=== PATIENT | male | born 1990 | race Caucasian/White ===

== ENCOUNTER 2019-06-05 13:12 | Emergency (ER) | payer BC, OTHER ==
[2019-06-05 13:44] VITALS: BP 133/87
--- NOTE | 2019-06-05 14:06 | UC ---
Eye Complaint HPI - HPI Summary HPI Summary: CHIEF COMPLAINT and HPI: This is a healthy 29 year old male with bilateral eye redness and crusting beginning 24 hours ago. Description of Pain: none; some itching. patient does use contact lenses that he wears for a month. He did have the contacts in. This is near the end of month course. However he's never had any trouble with the contacts and is in no discomfort. VITAL SIGNS & SaO2 REVIEWED. Within normal limits unless noted here. NURSES NOTE REVIEWED. 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 Negative: Blurred Vision, Diplopia, Photophobia Respiratory: Positive: Negative Cardiovascular: Positive: Negative Gastrointestinal: Positive: Negative Is Patient Immunocompromised?: No Physical Exam - Summary Physical Exam Summary: Appearance: The patient is well-appearing, is in no pain or distress, and is well-nourished. Eyes: Pupils are equal and reactive to light and accommodation. Extra ocular muscle movement is intact. ENT: The hearing is grossly normal, the pharynx is normal, and the TMs are normal. There is no muffled or hoarse voice. No stridor. There is mild injection to both sclera. There is evidence of dried crusting to the lower lashes of both eyes. There is slight injection to the bulbar conjunctiva bilaterally. Examination shows no hyphema, no corneal ulceration and no randolph- limbic flushing. Funduscopic examination is benign. Neck: The neck is supple and there is no lymphadenopathy. Respiratory: The chest is non-tender to palpation and without crepitus. The lungs are clear, there are normal breath sounds, and there is no respiratory distress. No wheezes, rales or rhonchi. Cardiovascular: Heart sounds reveal a regular rate and rhythm. There are no clicks, rubs or murmurs. There are no carotid bruits or thrills. Circulation is grossly intact. Abdomen: The abdomen is soft and nontender. There is no organomegaly. Bowel sounds are present and within normal limits. No point tenderness at McBurneys point. No CVA tenderness. Musculoskeletal: Strength is intact. The patient moves all extremities. Neurological: The patient is alert. Motor and sensory are examination grossly intact. Speech is normal. Psychological: The patient displays age appropriate behavior, and is conversant. GCS=15. Skin: Negative for rashes. Triage Information Reviewed: Yes Vital Signs: Initial Vital Signs Temp 98.3 F 06/05/19 13:39 Pulse 73 06/05/19 13:39 Resp 18 06/05/19 13:39 BP 133/87 06/05/19 13:39 Pulse Ox 100 06/05/19 13:39 Vital Signs Reviewed: Yes Eye Complaint Course/Dx - Course Course Of Treatment: This is a healthy 29 year old male with bilateral eye redness and crusting beginning 24 hours ago. No pain; some itching. Patient does use contact lenses that he wears for a month. He did have the contacts in. This is near the end of month course. However he's never had any trouble with the contacts and is in no discomfort. Examination of the eyes shows no corneal ulceration. There is no hyphema. There is mild scleral injection and bulbar injection. The remainder of the examination is unremarkable. My diagnosis is bilateral conjunctivitis. I will treat the patient with polymyxin B trimethoprim ophthalmic solution 2 drops every 3 hours when awake for 7-10 days. The patient knows to follow up if his condition is not improving in 3 days or sooner if he should have sudden redness after using the medication. - Differential Dx/Diagnosis Differential Diagnosis/HQI/PQRI: Conjunctivitis, Corneal Abrasion, Uveitis, Other - corneal ulceration Provider Diagnosis: Conjunctivitis Discharge ED - Sign-Out/Discharge Documenting (check all that apply): Patient Departure All imaging exams completed and their final reports reviewed: No Studies - Discharge Plan Condition: Stable Disposition: HOME Prescriptions: Polymyx/Trimethoprim OPTH* [Polytrim OPHTH*] 2 drop BOTH EYES Q3H #1 btl MDD 15 drops Patient Education Materials: Conjunctivitis (ED) Referrals: No Primary Care Phys,NOPCP [Primary Care Provider] - Additional Instructions: WE DISCUSSED: PLEASE SEEK CARE AT THE EMERGENCY DEPARTMENT IF SYMPTOMS WORSEN OR IF NEW SYMPTOMS DEVELOP. FOLLOW UP WITH YOUR PRIMARY CARE PHYSICIAN IF CONDITION CONTINUES BEYOND 3 DAYS WITHOUT IMPROVEMENT. YOUR DIAGNOSIS IS: CONJUNCTIVITIS TO BOTH EYES YOUR PRESCRIPTION RECOMMENDATION IS: opthalmic antibiotic; 2 drops every 3 hours when awake to both eyes for 7-10 days. ALSO: CLEAN LASHES WITH GENTLE SOAP AND WARM WATER. DON'T USE CONTACTS. USE MEDICATION UNTIL CONDITION IS COMPLETELY RESOLVED FOR 24 HOURS. FOR PAIN AND/OR SLEEP: For pain: Ibuprofen (Motrin and other brand names) 400-600mg PLUS acetaminophen (Tylenol and other brand names) 500mg - 1000mg every 8 hours. - Billing Disposition and Condition Condition: STABLE Disposition: Home
== END 2019-06-05 14:22 | disposition home or self-care (01) ==
LOC: UCEAST 13:12
DX: H10.9 Unspecified conjunctivitis (principal); Z87.891 Personal history of nicotine dependence
CPT/HCPCS: 99202; G0463